=== PATIENT | female | born 1965 | race Caucasian/White ===

== ENCOUNTER 2016-06-27 20:30 | Emergency (ER) | payer MEDICAID ==
--- NOTE | 2016-06-27 21:02 | Emergency Department Record ---
History of Present Illness - General Chief Complaint: Shortness of breath Stated Complaint: SRINATH/BACK PAIN Time Seen by Provider: 06/27/16 20:45 Source: Patient Mode of Arrival: Ambulatory Limitations: No limitations - History of Present Illness Initial Comments: 51 yo female presents to ED with a CC of back pain for the past 1 week, denies injury, fevers, chills, or urinary symptoms. Patient began receiving monthly injections for her asthma, and believes her symptoms may be related to a reaction from the injection. Patient reports that her symptoms are bilateral, denies history of similar symptoms. Patient was seen by her PCP Wednesday, checked for possible UTI and started on Flexeril/Motrin for her symptoms that are not helping much. Patient reports pain with deep breathing to her back and with movement. Patient denies hives, rash, or throat swelling symptoms. Onset/Timin -: Week(s) Severity scale (1-10): 8 Quality: Other Consistency: Constant, Getting worse Improves With: Nothing Worsens With: Inspiration, Movement Known History Of: Asthma Associated Symptoms: Denies other symptoms Treatments Prior to Arrival: Bronchodilator - Related Data Home Oxygen Therapy: No Home Medications Medication Instructions Recorded Confirmed Last Taken Folic Acid 1 mg PO DAILY 03/02/14 02/09/16 01/13/16 Pnv with Ca,No.71/Iron/FA 1 each PO DAILY 06/16/14 02/09/16 01/13/16 [Vol-Plus Tablet] Albuterol Sulfate 0.083% [Neb] 3 ml NEB .EVERY 4-6 HOURS PRN 12/24/14 02/09/16 01/13/16 Potassium Citrate [Urocit-K] 20 meq PO TID 12/24/14 02/10/16 01/13/16 Tiotropium [place] [Spiriva] 18 mcg IH DAILY 11/08/15 02/09/16 01/13/16 Montelukast Sodium [Singulair] 10 mg PO QD tab 02/12/16 Unknown Previous Rx's Medication Instructions Recorded Fluticasone Propionate [Flonase] 2 spray EACH NARES DAILY #1 bottle 03/19/15 Hydrocodone/Acetaminophen [Gaston 1 each PO Q6H #8 tablet 06/27/16 5-325 Tablet] Lidocaine Patch [Lidoderm] 1 each TOP Q12H PRN #20 patch 06/27/16 Allergies Allergy/AdvReac Type Severity Reaction Status Date / Time doxycycline Allergy Mild ITCHING Verified 06/27/16 20:35 Sulfa (Sulfonamide Allergy Unknown RASH Unverified 06/23/16 16:30 Antibiotics) [SULFA (SULFONAMIDE ANTIBIOTICS)] iodine Allergy HIVES Verified 06/27/16 20:35 lorazepam [From Ativan] Allergy HYPERSENSIT Verified 06/27/16 20:35 IVITY shellfish derived Allergy HIVES Verified 06/27/16 20:35 Benzodiazepines AdvReac HYPERSENSIT Verified 06/27/16 20:35 IVITY Opioids - Morphine Analogues AdvReac HYPERSENSIT Verified 06/27/16 20:35 IVITY Travel Screening - Travel/Exposure Within Last 30 Days Have you traveled within the last 30 days?: No - Travel Symptoms Symptom Screening: None Review of Systems Constitutional: Denies: Chills, Fever, Malaise, Night sweats Eyes: Denies: Eye discharge, Eye pain ENT: Denies: Ear pain, Epistaxis, Hearing loss Respiratory: Denies: Cough, Dyspnea Cardiovascular: Denies: Chest pain, Dyspnea on exertion Endocrine: Denies: Fatigue, Heat or cold intolerance Gastrointestinal: Denies: Abdominal pain, Nausea, Vomiting Genitourinary: Denies: Dysuria, Frequency, Hematuria, Incontinence Musculoskeletal: Reports: Back pain. Denies: Arthralgia, Gout, Joint swelling Skin: Denies: Bruising, Change in color, Change in hair/nails, Rash Neurological: Denies: Abnormal gait, Confusion, Headache, Seizure Psychiatric: Denies: Anxiety Hematological/Lymphatic: Denies: Anemia, Blood Clots Past Medical History - SOCIAL HISTORY Smoking Status: Never smoker - RESPIRATORY Hx Respiratory Disorders: Yes Hx Asthma: Yes Hx Bronchitis: Yes Hx Dyspnea: Yes Hx Pneumonia: Yes - CARDIOVASCULAR Hx Cardio Disorders: Yes Hx Cardiac Cath: Yes (1996) Hx Chest Pain: Yes - NEURO Hx Neuro Disorders: Yes Hx Headaches: Yes - GI Hx GI Disorders: Yes Hx Reflux: Yes Hx Irritable Bowel: Yes Hx Nausea/Vomiting: Yes Comment:: gastric bypass 2004 - Hx Genitourinary Disorders: Yes Hx Renal Disease: Yes Hx UTI: Yes Comment:: renal tubular acidosis, bladder stricture and self caths 3 times a day - ENDOCRINE Hx Endocrine Disorders: Yes Hx Diabetes: No Hx Thyroid Disease: Yes (Hypothyroid) - MUSCULOSKELETAL Hx Musculoskeletal Disorders: Yes Comment:: chronic pain, linchinplanis - PSYCH Hx Psych Problems: Yes Hx Anxiety: Yes Hx Depression: Yes - HEMATOLOGY/ONCOLOGY Hx Hematology/Oncology Disorders: Yes Hx Anemia: Yes Comment:: 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 negative: Conjunctival injection, Periorbital swelling, Periorbital tenderness, Scleral icterus - ENT Ear exam: negative: Auricular hematoma, Auricular trauma Nasal Exam: negative: Active bleeding, Discharge, Dried blood, Foreign body Mouth exam: negative: Drooling, Laceration, Muffled voice, Tongue elevation - Neck Neck exam: Normal inspection. negative: Meningismus, Tenderness - Respiratory Respiratory exam: Normal lung sounds bilaterally. negative: Rales, Respiratory distress, Rhonchi, Stridor, Wheezes - Cardiovascular Cardiovascular Exam: Normal rhythm, Normal heart sounds, Tachycardia - GI/Abdominal GI/Abdominal exam: Soft. negative: Rebound, Rigid, Tenderness - Rectal Rectal exam: Deferred - exam: Deferred - Extremities Extremities exam: Normal inspection. negative: Pedal edema, Tenderness - Back Back exam: Reports: Paraspinal tenderness (Bilateral to the mid-thoracic region) . Denies: CVA tenderness (R), CVA tenderness (L) - Neurological Neurological exam: Alert, Normal gait, Oriented X3 - Psychiatric Psychiatric exam: Normal affect, Normal mood - Skin Skin exam: Normal color. negative: Abrasion Type of lesion: negative: abrasion Course Vital Signs 06/27/16 20:38 Temperature 98.2 F Pulse Rate [ 115 H Pulse Ox Probe] Respiratory 15 Rate Blood Pressure 151/97 [Left Arm] Pulse Ox 99 - Reevaluation(s) Reevaluation #1: 06/27/16 21:08 EKG: Sinus Tachycardia 100 Normal axis, normal intervals Q wave III only, no acute ST-T wave changes Reevaluation #2: 06/27/16 21:45 CXR: No acute process Thoracic spine: Mild anterior wedge deformity T8 vertebral body Patient was updated on her radiology results, back pain symptoms may be related to subacute vs. acute wedge deformity at T8. Will prescribe short course of Gaston for her pain symptoms in addition to her Flexeril and Motrin with instructions for follow-up with her PCP in 3-5 days as directed. Patient and her mother verbalize understanding of all instructions, and appear stable for discharge at this time. Disposition Disposition: Discharge Clinical Impression: Compression fracture of thoracic spine, non-traumatic Qualifiers: Encounter type: initial encounter Qualified Code(s): M48.54XA - Collapsed vertebra, not elsewhere classified, thoracic region, initial encounter for fracture Disposition: Home, Self-Care Condition: (2) Stable Instructions: Vertebral Compression Fracture (ED) Additional Instructions: Return to ED if your symptoms worsen or if you have any concerns. Gaston and Lidoderm patches as directed. Follow-up with your family doctor in 3-5 days as directed. Prescriptions: Hydrocodone/Acetaminophen [Gaston 5-325 Tablet] 1 each PO Q6H #8 tablet Lidocaine Patch [Lidoderm] 1 each TOP Q12H PRN #20 patch PRN Reason: Pain - Moderate (5-7) Forms: Patient Portal Access Time of Disposition: 21:57
[2016-06-27] MEDS ORDERED: LIDOCAINE 5% PATCH TOP ONE (21:58)
== END 2016-06-27 22:10 | disposition home or self-care (01) ==
LOC: ER 20:30
DX: M48.54XA Collapsed vertebra, not elsewhere classified, thoracic region, initial encounter for fracture (principal); R06.02 Shortness of breath
CPT/HCPCS: 71020; 72072; 93005; 93010; 99284

== ENCOUNTER 2018-05-12 16:56 | Emergency (ER) | payer MEDICAID ==
[2018-05-12] MEDS ORDERED: 0.9 % SODIUM CHLORIDE 1,000 ML BAG IV ONE (17:15)
[2018-05-12 17:22] LABS: HEMATOCRIT 34.9 % (35.0-47.0); HEMOGLOBIN 11.2 gm/dl (11.6-16.0); MEAN CELL VOLUME 88.4 fl (81-97); MEAN CORPUSCULAR HGB CONC 32.1 g/dl (32-36); MEAN PLATELET VOLUME 12.8 fl (7.4-10.4); PLATELET COUNT 241 K/uL (130-400); RED BLOOD COUNT 3.95 M/uL (3.80-5.40); RED CELL DISTRIBUTION WIDTH 16.4 % (11.5-14.5); WHITE BLOOD COUNT W/O DIFF 12.2 K/uL (4.2-12.2)
--- NOTE | 2018-05-12 17:22 | Emergency Department Record ---
History of Present Illness - General Chief Complaint: Dizziness Stated Complaint: LOW BLOOD PRESSURE/HIGH HEART RATE Time Seen by Provider: 05/12/18 17:11 Source: Patient, Family Mode of Arrival: Ambulatory Limitations: No limitations - History of Present Illness Initial Comments: The patient is here due to being found with a low BP in the doctors office this afternoon. She has a hx of HTN but has lost over 100lbs after gastric bypass and for the last 2 months her BP has been running low. She did see her Services Coordinator who a week ago stopped her Lisinopril and Toprol and she had a F/U appointment today and that is where her BP was quite low per the patient. The patient does state she has been more dizzy and lightheaded for the last few days. She denies any Cp, SOB, SRINATH, INIGUEZ, falls, nausea, vomiting, or diarrhea. MD Complaint: Lightheadedness Onset/Timin -: Days(s) Description: Difficulty walking, Lightheadedness, Off-balance, "Room spinning" History of Same: No History of Trauma: No - Wm Coma Scale Eye Response: (4) Open spontaneously Motor Response: (6) Obeys commands Verbal Response: (5) Oriented [place] Total: 15 - Related Data Home Medications Medication Instructions Recorded Confirmed Last Taken Budesonide/Formoterol Fumarate 2 puff IH BID 05/12/18 05/12/18 05/12/18 [Symbicort 160-4.5 Mcg Inhaler] Cetirizine HCl [Zyrtec] 10 mg PO DAILY 05/12/18 05/12/18 05/12/18 Citalopram Hydrobromide [Celexa] 20 mg PO DAILY 05/12/18 05/12/18 05/12/18 Fluticasone Propionate [Flonase 2 spray NS DAILY 05/12/18 05/12/18 05/12/18 Allergy Relief] Folic Acid 1 mg PO DAILY 05/12/18 05/12/18 05/12/18 Levothyroxine Sodium [Synthroid] 25 mcg PO DAILY 05/12/18 05/12/18 05/12/18 Mometasone/Formoterol [Dulera 100 2 puff IH BID 05/12/18 05/12/18 05/12/18 Mcg/5 Mcg Inhaler] Omeprazole [Prilosec] 20 mg PO DAILY 05/12/18 05/12/18 05/12/18 Pseudoephedrine HCl 120 mg PO Q12H 05/12/18 05/12/18 05/12/18 [Pseudoephedrine ER] Tiotropium [place] [Spiriva 2 puff IH DAILY 05/12/18 05/12/18 05/12/18 Respimat] Allergies Allergy/AdvReac Type Severity Reaction Status Date / Time doxycycline Allergy Mild ITCHING Unverified 05/10/18 08:17 Sulfa (Sulfonamide Allergy Unknown RASH Unverified 05/10/18 08:17 Antibiotics) [SULFA (SULFONAMIDE ANTIBIOTICS)] iodine Allergy HIVES Unverified 05/10/18 08:17 lorazepam [From Ativan] Allergy HYPERSENSIT Unverified 05/10/18 08:17 IVITY shellfish derived Allergy HIVES Unverified 05/10/18 08:17 Benzodiazepines AdvReac HYPERSENSIT Unverified 05/10/18 08:17 IVITY Opioids - Morphine Analogues AdvReac HYPERSENSIT Unverified 05/10/18 08:17 IVITY Travel Screening - Travel/Exposure Within Last 30 Days Have you traveled within the last 30 days?: No - Travel/Exposure Within Last Year Have you traveled outside the [place] in the last year?: No - Additonal Travel Details Have you been exposed to anyone with a communicable illness?: No - Travel Symptoms Symptom Screening: None Review of Systems Constitutional: Denies: Chills Eyes: Denies: Eye discharge ENT: Denies: Congestion Respiratory: Denies: Cough, Dyspnea Cardiovascular: Denies: Chest pain Endocrine: Reports: Fatigue Gastrointestinal: Denies: Nausea Genitourinary: Denies: Dysuria Musculoskeletal: Denies: Arthralgia Neurological: Reports: Weakness. Denies: Abnormal gait Past Medical History - SOCIAL HISTORY Smoking Status: Never smoker Alcohol Use: None Drug Use: None - RESPIRATORY Hx Respiratory Disorders: Yes Hx Asthma: Yes Hx Bronchitis: Yes Hx Dyspnea: Yes Hx Pneumonia: Yes - CARDIOVASCULAR Hx Cardio Disorders: Yes Hx Cardiac Cath: Yes (1996) Hx Chest Pain: Yes - NEURO Hx Neuro Disorders: Yes Hx Headaches: Yes - GI Hx GI Disorders: Yes Hx Reflux: Yes Hx Irritable Bowel: Yes Hx Nausea/Vomiting: Yes Comment:: gastric bypass 2004 - Hx Genitourinary Disorders: Yes Hx Renal Disease: Yes Hx UTI: Yes Comment:: renal tubular acidosis, bladder stricture and self caths 3 times a day - ENDOCRINE Hx Endocrine Disorders: Yes Hx Diabetes: No Hx Thyroid Disease: Yes (Hypothyroid) - MUSCULOSKELETAL Hx Musculoskeletal Disorders: Yes Comment:: chronic pain, linchinplanis - PSYCH Hx Psych Problems: Yes Hx Anxiety: Yes Hx Depression: Yes - HEMATOLOGY/ONCOLOGY Hx Hematology/Oncology Disorders: Yes Hx Anemia: Yes Comment:: 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 negative: Tonsillar erythema, Tonsillar exudate - Neck Neck exam: Normal inspection, Full ROM. negative: Tenderness - Respiratory Respiratory exam: Normal lung sounds bilaterally. negative: Respiratory distress - Cardiovascular Cardiovascular Exam: Regular rate, Normal rhythm, Normal heart sounds. negative : Diastolic murmur, Systolic murmur - GI/Abdominal GI/Abdominal exam: Soft, Normal bowel sounds. negative: Tenderness - Extremities Extremities exam: Normal inspection, Full ROM, Normal capillary refill. negative: Tenderness - Back Back exam: Reports: Normal inspection. Denies: Vertebral tenderness - Neurological Neurological exam: Alert, Normal gait, Oriented X3. negative: Abnormal gait, Altered, Motor sensory deficit - Psychiatric Psychiatric exam: negative: Anxious - Skin Skin exam: negative: Rash Course Vital Signs 05/12/18 17:02 Temperature 98.3 F Pulse Rate 107 H Respiratory 18 Rate Blood Pressure 94/58 Pulse Ox 98 - Reevaluation(s) Reevaluation #1: The patient is feeling better and her BP is slightly improved. I did discuss the lab work with her and the need for transfer to [facility] where her [employer] Area Supervisor is located. I did discuss the case with Dr. Calderon from service and he does accept the patient for admission. 05/12/18 17:56 Medical Decision Making - Data Complexity MDM Data: Labs Ordered and/or Reviewed, EKG Ordered and/or Reviewed - Lab Data Result diagrams: 05/12/18 17:10 05/12/18 17:10 - EKG Data -: EKG Interpreted by Me EKG: No Acute Changes, Unchanged From Previous Disposition Disposition: Transfer Clinical Impression: Renal failure (ARF), acute on chronic Qualifiers: Acute renal failure type: unspecified Chronic kidney disease stage: unspecified stage Qualified Code(s): N17.9 - Acute kidney failure, unspecified Disposition: Home, Self-Care Transfer To: [facility] Reason For Transfer: Renal Failure Accepting Physician: Kvng Time Discussed w/Accepting Physician: 17:58 Condition: (2) Stable Instructions: End Stage Kidney Disease (ED) Forms: Patient Portal Access Time of Disposition: 17:58 Quality - Quality Measures Quality Measures: N/A - Blood Pressure Screening View Details: Yes Does Patient Have Any of the Following: No Blood Pressure Classification: Normal BP Reading Systolic Measurement: 94 Diastolic Measurement: 58 Screening for High Blood Pressure: < Normal BP, F/U Not Required > [[id number]]
[2018-05-12 17:23] LABS: MEAN CORPUSCULAR HEMOGLOBIN 28.3 pg (27-33)
[2018-05-12 17:30] LABS: PLATELET ESTIMATE NORMAL (NORMAL)
[2018-05-12 17:35] LABS: BLOOD UREA NITROGEN 44 mg/dL (6-20); CREATININE 3.5 mg/dL (0.5-0.9); EST GLOMERULAR FILTRATION RATE 15 mL/min
[2018-05-12 17:38] LABS: GLUCOSE,RANDOM 73 mg/dL (74-109)
[2018-05-12 17:40] LABS: ALT/SGPT < 5 U/L (<33)
[2018-05-12 17:41] LABS: ALB/GLOB RATIO 1.2 (1.1-1.8); ALBUMIN 4.3 g/dL (4.0-5.0); ALKALINE PHOSPHATASE 110 U/L (35-104); AST/SGOT 8 U/L (10.0-35.0)
[2018-05-12] MEDS ORDERED: 0.9 % SODIUM CHLORIDE 1000ML 1,000 ML IV ONE (18:07)
== END 2018-05-12 19:07 | disposition short-term general hospital (02) ==
LOC: ER 16:56
DX: N17.9 Acute kidney failure, unspecified (principal); R42 Dizziness and giddiness; R26.2 Difficulty in walking, not elsewhere classified; I95.9 Hypotension, unspecified; Z98.84 Bariatric surgery status
CPT/HCPCS: 80053; 84443; 84484; 85027; 93005; 93010; 96360; 99285; J7030